=== PATIENT | male | born 1935 | race Caucasian/White ===

== ENCOUNTER 2019-05-26 15:51 | Observation (INO) | payer MEDICARE ==
[~2019-05-26] VITALS: Ht 182.9 cm; Wt 117.6 kg
--- NOTE | ~2019-05-26 | OR ---
[facility] [address], [place] [address] Draft DATE OF OPERATION: 05/27/2019 SURGEON: Humera Torrez MD PREOPERATIVE DIAGNOSES: 1. Acute calculous cholecystitis with probable cholangitis and sepsis. 2. Obesity. POSTOPERATIVE DIAGNOSES: 1. Acute calculous cholecystitis with probable cholangitis and sepsis. 2. Obesity. 3. Common bile duct stones. PROCEDURES: 1. Laparoscopic cholecystectomy with cholangiogram. 2. Laparoscopic lysis of adhesions. 3. Laparoscopic common bile duct exploration with extraction of common bile duct stones. 4. Flexible choledochoscopy with basket common bile duct stone removal, prolonged, complicated, difficult. ANESTHESIA: General endotracheal, Humera Maldonado CRNA, and local 10 mL of 0.25% Marcaine with epinephrine. INDICATION: This 84-year-old white man is known to me from the past and has longstanding been known to have gallstones, never symptomatic. He was admitted on May 26, 2019, after presentation in the emergency room with severe epigastric and bilateral subcostal pain and findings consistent with acute calculous cholecystitis. A gallbladder ultrasound was performed confirming this. He did have slightly elevated liver enzymes and bilirubin that was somewhat elevated as well. He was given fluid resuscitation, intravenous antibiotic Ancef, parental pain medication and so forth. This morning, he had an episode of chills and sweats and findings highly suggestive of cholangitis. A lactic acid level was obtained which is 2.6 (elevated). His antibiotics were changed from Ancef to meropenem and he is improved. He is admitted late in the day at this time to undergo cholecystectomy preferred by laparoscopic approach. The risks of bleeding, infection, bile duct injury, need for open procedure, need for common duct exploration, and other unforeseen complications were all reviewed in detail. He understands and wished to proceed. PATIENT NAME: NIKKY RONDON OPERATIVE REPORT DATE OF : 39 REPORT #: [id number] PHYSICIAN: HUMERA TORREZ MD PCP: DILLAN CA DO REPORT IS CONFIDENTIAL AND NOT TO BE RELEASED WITHOUT AUTHORIZATION [facility] [address], [place] [address] Draft FINDINGS: The patient had a fair amount of intraabdominal adhesions related to a long midline incision from the past. This required extensive lysis of adhesions to allow for placement of trocars in a safe way. On that basis alone, the procedure was prolonged, complicated, and difficult. He was found to have in fact a markedly inflamed gallbladder. No sign of gangrenous change. Decompression was required given the extent of the gallbladder inflammation. On initial cholangiogram, he did have a small amount of flow of contrast into the duodenum. The distal common duct in the region of the ampulla looked abnormal and on that basis, laparoscopic common duct exploration was undertaken from a transcystic approach. This ultimately did require flexible choledochoscopy and extraction of a common bile duct stone with basket using a flexible choledochoscope. Completion cholangiogram was ultimately found to be normal. The gallbladder once excised showed a marked inflammatory change of the mucosa and a hemorrhagic clot and sludge as well as black multifaceted thin flint like gallstones. There was no sign of neoplasm proper. DESCRIPTION OF PROCEDURE: The patient was brought to the operating room, given a general endotracheal anesthetic. Mindful of possibility of prolonged operation, a Gusman catheter was placed by myself. The abdomen was then clipped and prepared with a chlorhexidine solution and draped sterilely. Preoperative antibiotic meropenem had been given. An infraumbilical incision was made and despite a long midline incision with an open Christy cannula technique, the abdomen was entered and pneumoperitoneum achieved to a level of 10 mmHg of carbon dioxide gas. The laparoscope was carefully insinuated into the peritoneal cavity allowing for visualization of the upper abdomen. The liver appeared reasonably normal, however, the gallbladder itself was markedly inflamed and distended. There were numerous adhesions in the upper abdomen requiring lysis to allow for safe placement of trocars. Through a right-sided 5 mm port, lysis was undertaken providing a good field in the upper abdomen. An epigastric 12 mm port was placed under direct visualization without problem and a right midclavicular port 5 mm in size also placed. Attempts to grasp the gallbladder were unsuccessful. Therefore, decompression of the gallbladder was undertaken with a needle device draining bilious fluid. Puncture site was grasped allowing for elevation of the gallbladder more cephalad. The infundibulum was grasped and the infundibulum was quite fatty. Using blunt and electrocautery dissection, the triangle of Calot was dissected free ultimately identifying well the cystic arterial branches as well as the cystic duct clip. A clip PATIENT NAME: NIKKY RONDON OPERATIVE REPORT DATE OF : 39 REPORT #: [id number] PHYSICIAN: HUMERA TORREZ MD PCP: DILLAN CA DO REPORT IS CONFIDENTIAL AND NOT TO BE RELEASED WITHOUT AUTHORIZATION [address] [address] Draft was applied across gallbladder cystic duct junction and the cystic duct doubly clipped and divided. A transverse choledochotomy was made in the cystic duct showing egress of dark bile. Using the Rashid type cholangiocatheter, intraoperative cholangiography was undertaken. This showed free flow of contrast in biliary tree which was somewhat dilated and although there was a trickle of contrast into the duodenum, there appeared to be abnormality in the distal common duct. Mindful of his preoperative lab studies, his cholangitis and so forth probability of common bile duct stones was considered high. On that basis, laparoscopic common duct exploration was recommended. In the epigastric area, a Taut trocar was placed under direct visualization allowing for alignment of the trocar with the cystic duct itself. Using the Taut catheter system and a flexible-tipped urology wire, the wire was passed down the cystic duct and confirmed on fluoroscopy to be in the distal duct. Manipulation of the wire allowed to pass through the ampulla. Following that, a Taut balloon type catheter was passed over the wire under direct visualization aligning the two balloon helms directly across the ampulla. Ampulla was then dilated with radiocontrast in the balloon allowing for opening of the ampulla. MD MATTEO Horne/SANGEETA /[id number] Copies: ~ PATIENT NAME: NIKKY RONDON OPERATIVE REPORT DATE OF : 39 REPORT #: [id number] PHYSICIAN: HUMERA TORREZ MD PCP: DILLAN CA DO REPORT IS CONFIDENTIAL AND NOT TO BE RELEASED WITHOUT AUTHORIZATION
[~2019-05-26 15:51] MED LIST: AMLODIPINE BESY10 MG PO; ASPIRIN EC81 MG PO; BP MED PO; CIPRO500 MG PO; HYDROCODON-ACE1 EA10 PO; IBUPROFEN600 MG PO; LISINOPRIL-HCT1 EAC2 PO; MAGNESIUM250 M1 PO; MAPAP325 MG PO; METRONIDAZOLE500 MG PO; MIRALAX17 GM PO; NORCO 5-325 TA1 EACH PO; OXYCODON-ACETA1 EAC2 PO; PRESERVISION A1 EAC3 PO; PRILOSEC20 MG PO; VITAMIN D-32000 UNIT PO; [UNRECOGNIZED DRUG - REMARK] PO
--- NOTE | 2019-05-26 19:10 | NUR ---
REPORT RECEIVED, PT ARRIVED TO THE FLOOR VIA BED, OFFSET PLATEMAKERFLOYD GREGG IN ROOM W/PT CHECKING HIM IN AT THIS TIME.
--- NOTE | 2019-05-26 19:30 | NUR ---
PT ADMITTED TO ROOM 109 @ 1908, A/O, SBA FROM STRETCHER TO BED. ACCOMPAINED BY . ADMITTED ON OXYGEN, STATES HE DOESN'T USE OXYGEN AT HOME, BUT AT APPOINTMENTS HIS OX LEVELS ARE "88, 89, OR IN 90'S" WEARS TONY HEARING AIDES, PARTIAL LOWER DENTURE. STATES HIS HAS "DEMENTIA". SHE WILL STAY WITH HIM IN ROOM BUT HE REQUESTS STAFF DIRECT HER IF SHE IS SEEN IN THE HALLWAY. STATES SHE WILL GET LOST DRIVING HOME. CAREGIVER LUNCH BOX GIVEN TO PT SHE MISSED DINNER. WILL GET HER BREAKFAST TRAY IN MORNING. CALL LIGHT AND BED CONTROLS INSTRUCTIONS GIVEN TO PT.
--- NOTE | 2019-05-26 19:56 | NUR ---
IN ROOM TO ADMIN SCHEDULED ABX, PT AOX4, APPROPRIATE, RESTING IN BED, ON 2LNC, NO C/O SOB/CP, PT DENIES ANY SIGNIFICANT PAIN AT THIS TIME, RATES PAIN AT 2/10, DENIES NEED FOR PRN PAIN MEDICATION, PT DENIES ANY NAUSEA, BT ACTIVE, ABDOMEN IS SOFT, PT DESCRIBES ABD TENDERNESS IN MID EPIGASTRIC AREA WELL BILATERAL UPPER QUADRANTS, PT STATES "IT FEELS LIKE IT'S RIGHT UNDER MY RIB CAGE", PT ORIENTED TO ROOM, EDUCATION PROVIDED REGARDING PAIN MANAGEMENT WELL POC, PT DENIES ANY NEEDS AT THIS TIME, ALLERGY BAND APPLIED, PT'S VSS, CALL LIGHT WITHIN REACH. PT VERBALIZED THAT HE WILL CALL IF NEED TO USE THE RESTROOM ARISES FOR ASSISTANCE DUE TO IV, IV FLUIDS INFUSING PER EMAR WNL.
--- NOTE | 2019-05-26 21:23 | NUR ---
PT GAVE BROTHER REKHA'S NUMBER IN THE EVENT AN EMERGENCY OCCURS, LIVES IN [facility]. [phone]. DR TORREZ IN TO SEE PT, STATES SURGERY "IN THE AFTERNOON". DISCUSSED WITH PT.
--- NOTE | 2019-05-26 22:00 | NUR ---
TELE PHARMACY CALLED THE FLOOR REGARDING PT'S ORDERED DOSE OF LISINOPRIL/HCTZ, DISCUSSED ORDER WITH DR. TORREZ AND RECEIVED ORDER TO FOLLOW THE PT'S HOME DOSE. DISCUSSED WITH PT, PT STATED THAT HE HAD ALREADY TAKEN THAT MEDICATION TODAY THEREFORE MEDICATION WAS RETIMED TO BE GIVEN IN AM, DISCUSSED WITH PHARMACY AND VERIFIED ORDER CHANGES WITH INDUSTRIAL ECOLOGY TECHNICIAN.
--- NOTE | 2019-05-26 22:35 | NUR ---
PT C/O HEARTBURN, PT GIVEN PRN HEARTBURN MEDICATION PER EMAR, PT RESTING IN BED, ON 2LNC, NO FURTHER NEEDS AT THIS TIME, CALL LIGHT WITHIN REACH. FALL PRECAUTIONS IN PLACE.
--- NOTE | 2019-05-27 00:31 | NUR ---
PT UP TO BATHROOM WITH 1 PERSON SBA, PT BACK TO BED, SCD'S ON, IV FLUIDS INFUSING PER EMAR WNL, PT STATES THAT HIS HEARTBURN HAS DECREASED ALTHOUGH HE CONTINUES TO BE PASSING GAS AND BELCHING FREQUENTLY, PT DENIES ANY NAUSEA, DENIES ANY SIGNIFICANT PAIN, PT INSTRUCTED TO NOTIFY THIS RN IF PAIN OR NAUSEA BEGIN TO INCREASE, PT DENIES ANY NEEDS AT THIS TIME, CALL LIGHT WITHIN REACH. FALL PRECAUTIONS IN PLACE.
--- NOTE | 2019-05-27 02:33 | NUR ---
PT RESTING IN BED, EYES CLOSED, BREATHS EVEN, UNLABORED, NO NEEDS AT THIS TIME, CALL LIGHT WITHIN REACH. FALL PRECAUTIONS IN PLACE. ON 2LNC, IV FLUIDS INFUSING PER EMAR WNL. SCD'S ON.
--- NOTE | 2019-05-27 03:30 | NUR ---
CALL LIGHT ANSWERED, DORETHA LOZOYA ASSISTED PT TO THE BATHROOM, 1 PERSON SBA, PT THEN C/O HEARTBURN, PT GIVEN PRN HEARTBURN MED PER EMAR, PT DENIES SIGNIFICANT PAIN AT THIS TIME, RATES PAIN AT 3/10, DENIES NEED FOR PRN PAIN MEDICATION. IV ABX/FLUIDS INFUSING PER EMAR WNL. SCD'S ON, PT REMAINS ON 2LNC, NO C/O SOB/CP, LS CLEAR, BT ACTIVE.
--- NOTE | 2019-05-27 04:49 | NUR ---
PT AOX4, APPROPRIATE, PT RESTED WELL, PT IS TANANA, 1 PERSON SBA, IV FLUIDS INFUSING PER EMAR WNL, IV ABX INFUSED PER EMAR, PT HAS C/O HEARTBURN X2 THIS SHIFT, MAALOX GIVEN PER EMAR, NO C/O PAIN, NO C/O NAUSEA, PT'S VSS, UO QS, PT HAS BEEN NPO SINCE ARRIVAL TO FLOOR, PLANNED SURGERY FOR LATER THIS AFTERNOON, CONSENT SIGNED AND ON CHART,
--- NOTE | 2019-05-27 05:29 | NUR ---
CALL LIGHT ANSWERED, PT C/O 04/10 PAIN IN ABDOMEN, PT GIVEN PRN PAIN MEDICATION PER EMAR, PT ALSO C/O NAUSEA AND DID HAVE AN EPISODE OF EMESIS OF APPROX. 200 ML'S, PT GIVEN PRN ZOFRAN PER EMAR RELATED TO NAUSEA, PT REMAINS ON 2LNC, O2 SAT 94%, HR 85, IV FLUIDS INFUSING PER EMAR WNL, SCD'S ON, LAB IN ROOM W/PT AT THIS TIME. CALL LIGHT WITHIN REACH. FALL PRECAUTIONS IN PLACE.
--- NOTE | 2019-05-27 05:50 | NUR ---
PT NOTED TO BE SHIVERING UNCONTROLLABLY, PT C/O COLD, WARM BLANKET BEING PROVIDED BY DORETHA LOZOYA, THIS RN CALLED BOOK REVIEWER CRISTINO AND FLOYD AMBROSE TO ROOM, CBG OBTAINED, PT'S CBG 137, PT'S VSS, AFEBRILE, SEE EHR, PT'S ABDOMEN NOT NOTED TO BE ANY MORE DISTENDED, PT'S BT REMAIN ACTIVE, DR. TORREZ CALLED AND NOTIFIED OF PT'S CONDITION, NEW ORDER FOR LACTIC ACID BLOOD DRAW WELL PHENERGAN FOR NAUSEA, SEE EMAR, NO FURTHER ORDERS, TORB.
--- NOTE | 2019-05-27 05:58 | NUR ---
VS and I&Os were complete per FLOYD Win.
--- NOTE | 2019-05-27 06:42 | NUR ---
PT HAD A SECOND EPISODE OF EMESIS AND CONTINUED NAUSEA, PRN PHERNERGAN GIVEN PER ORDER. PT RESTING IN BED, ON 2LNC, PT STATES "I THINK I AM STARTING TO WARM UP", WILL CONTINUE TO CLOSELY MONITOR.
--- NOTE | 2019-05-27 07:30 | NUR ---
PT RESTING IN HIGH FOWLERS WITH EYES CLOSED AND SNORING WITH NC IN PLACE ON REPORT.
--- NOTE | 2019-05-27 07:49 | NUR ---
PATIENT SLEEPING, IN ROOM. CALL LIGHT IN REACH. NO FURTHER NEEDS AT THIS TIME.
--- NOTE | 2019-05-27 07:59 | EKG ---
[facility] [address] [facility] [place] [address] Signed Sinus rhythm with sinus arrhythmia with 1st degree AV block with occasional premature ventricular complexes Otherwise normal ECG No previous ECGs available Confirmed by COREY BRANCH MD ([id number]) on 05/27/2019 7:59:04 AM Electronically Signed By: COREY BRANCH MD 05/27/19 0759 PATIENT NAME: NIKKY RONDON KIAN Electrocardiogram DATE OF : 39 PHYSICIAN: COREY BRANCH MD REPORT #: [id number] REPORT IS CONFIDENTIAL AND NOT TO BE RELEASED WITHOUT AUTHORIZATION
--- NOTE | 2019-05-27 08:18 | NUR ---
PT VERY DROWSY ON ARRIVAL TO PT RM. PT AROUSES TO VERBAL STIMULI AND IS ABLE TO STATE 2 PT IDENTIFIERS. CONT PULSE OX APPLIED, SATS HIGH 80'S WITH 2L NC IN PLACE. PT CHANGED TO 4 L NC WITH BUBBLE HUMIDIFIER IN PLACE, SATS 90%. PT SPOUSE IN RM LAYING ON COUCH. LOOK OUT TOWER FIRE WATCHER IN ROOM, WILL COME BACK AT LATER TIME. CALL LIGHT WITHIN REACH.
--- NOTE | 2019-05-27 09:13 | NUR ---
PATIENT UP TO BATHROOM AND BACK TO BED, 1PA. RN IN ROOM. CALL LIGHT IN REACH. NO FURTHER NEEDS AT THIS TIME.
--- NOTE | 2019-05-27 12:09 | NUR ---
CPOX MONITOR ALARMING. THIS RN TO BEDSIDE. O2 READS 88%. O2 BY NC INCREASED TO 5L. HEAD OF BED RAISED. PLUSE OX NOW READING 90-92%. PTS RN INFORMED. PT DENIES ADDITIONAL REQUESTS OR COMPLAINTS AT THIS TIME. CALL LIGHT WITHIN REACH.
--- NOTE | 2019-05-27 12:18 | NUR ---
MONITORING PT O2 DEMANDS. PT CURRENTLY ON 4L VIA NC WITH HUMIDIFICATION, SATS 90%. PT APPEARS TO BE COMFORTABLE, DENIES ANY NEEDS AT THIS TIME. PT SPOUSE CONT AT BEDSIDE. CALL LIGHT IN REACH.
--- NOTE | 2019-05-27 13:36 | NUR ---
PATIENT IN BED RESTING, AT BEDSIDE. NO VOID, WILL CHECK BACK IN. CALL LIGHT IN REACH. NO FURTHER NEEDS AT THIS TIME.
--- NOTE | 2019-05-27 14:00 | NUR ---
PT ALERT, ORIENTED SITTING UP IN BED, AND READY MATERIAL FOR SURGERY. PTS' IS AT BS. I REASSURED PT THAT STAFF WILL KEEP AN EYE ON HIS , AND SEE THAT SHE EATS WHILE HE IS IN SURGERY. PT REQUESTED PRAYER, WILL FOLLOW NEEDED
--- NOTE | 2019-05-27 14:43 | NUR ---
PT RESTING IN BED, HEAD ELEVATED. PT IS ALERT AND ORIENTED. PT HAS NO COMPLAINTS OR REQUESTS AT THIS TIME. PT'S AT BEDSIDE.OXYGEN SATURATION AT 91% ON 4L O2 N.C.
--- NOTE | 2019-05-27 15:56 | NUR ---
SURGICAL WIPEDOWN DONE. NEW GOWN PROVIDED. PATIENT UP TO BATHROOM AND BACK TO BED 1PA. IN ROOM. CALL LIGHT IN REACH. NO FURTHER NEEDS AT THIS TIME.
--- NOTE | 2019-05-27 16:10 | NUR ---
PT UP TO BATHROOM WITH RN ASSIST, ABLE TO VOID QS AND BACK TO BED. PT SITTING AT SIDE OF BED WITH 4L O2 VIA AK WTIH HUMIDIFICATION, SATS 90%. PT DENIES PAIN OR NAUSEA AT THIS TIME. PT PREPPED FOR SURGERY. SPOUSE AT BEDSIDE, CALL LIGHT WITHIN PLACE.
--- NOTE | 2019-05-27 17:43 | NUR ---
PATIENT IN BED, IN ROOM. CALL LIGHT IN REACH. NO FURTHER NEEDS AT THIS TIME.
[2019-05-27] MEDS ORDERED: VITAMIN B-12500 MCG PO (18:09)
--- NOTE | 2019-05-27 18:14 | NUR ---
Medications reconciled using pharmacy records and patient interview
--- NOTE | 2019-05-27 18:21 | NUR ---
PT WAS VERY DROWSY FIRST HALF OF SHIFT, 4L O2 PLACED TO MAINTAIN 90% OXYGEN SATURATION. PT IS NPO FOR SURGERY TODAY TO FOLLOW. HE HAS BEEN ORIETNED OVER SHIFT, HE IS HARD OF HEARING, HE HAS REPORTED NO PAIN OR NAUSEA OVER SHIFT. ONE PERSON ASSIST TO BATHROOM. HAS BEEN IN ROOM ENTIRE SHIFT HAS BEEN GIVEN CARE TRAYS FOR MEALS. PT IS CURRENTLY READY FOR SURGERY AWAITING OPERATING ROOM AVAILABLILITY.
--- NOTE | 2019-05-27 18:44 | NUR ---
PT OFF THE UNIT TO SURGERY. PT TO REMAIN IN ROOM 109 DURING PT PROCEDURE.
--- NOTE | 2019-05-27 19:48 | NUR ---
RECEIVED REPORT FROM DAY SHIFT RN. PATIENT IS IN SURGERY AT THIS TIME. JUSTIN IS IN THE ROOM. NO NEEDS NOTED. CALL LIGHT IN REACH.
--- NOTE | 2019-05-27 19:59 | NUR ---
Checked on pt . She is sitting in reclinner. Previous to this, she has her purse and was walking away from the room. Reminded her about her . Redirected back to room 109
--- NOTE | 2019-05-27 21:10 | NUR ---
Pt to door mult times. Reassured, gave pudding. Coloring picture given.
--- NOTE | 2019-05-27 22:34 | HP ---
[facility] [address], [place] [address] Signed ADMISSION DATE: 05/26/2019 REASON FOR ADMISSION: Acute calculous cholecystitis. HISTORY OF PRESENT ILLNESS: This 84-year-old white man is well known to me from the past having undergone colectomy for diverticular disease as well as bilateral carpal tunnel release. He has long known to have had gallstones, though they have never been symptomatic in the past. This morning at approximately 8:30 a.m., he began having bilateral subcostal significant abdominal pain. He did not have chest pain per se nor does he have any dyspnea, but his pain was quite significant particularly in taking deep breath. He additionally had bilateral posterior thoracic pain. In general terms, he has not been symptomatic from the gallstones in the past. He presented to the emergency room where he was evaluated by Dr. Shahid, who was concerned of possible pulmonary embolism and got a D-dimer, which was normal or at least not very high and a chest x-ray, which was normal. An ultrasound of the gallbladder was performed, which showed findings of gallstones as previously noted. The findings including some thickening of the gallbladder wall consistent with cholecystitis. He is admitted for further evaluation and care for acute calculous cholecystitis. PAST MEDICAL HISTORY: Significant for sigmoid resection for diverticular disease as well as appendectomy. He has had bilateral carpal tunnel release. He does not smoke and uses alcohol occasionally. Other issues include hypertension. SOCIAL HISTORY: He lives in [place]. He works in renovating houses and selling them. He is accompanied by his hussain. CURRENT MEDICATIONS: Include: 1. Amlodipine 10 mg p.o. daily. 2. Lisinopril/hydrochlorothiazide 10/12.5 mg one p.o. daily. 3. Vitamin D3 one tablet p.o. daily. 4. Magnesium 250 mg p.o. daily. Electronically Signed By: HUMERA TORREZ MD 05/27/19 2234 PATIENT NAME: NIKKY STEELE HISTORY AND PHYSICAL DATE OF : 39 REPORT #: [id number] PHYSICIAN: HUMERA TORREZ MD PCP: DILLAN CA DO REPORT IS CONFIDENTIAL AND NOT TO BE RELEASED WITHOUT AUTHORIZATION [facility] [address], [place] [address] Signed 5. Multivitamin for vision. PRIMARY CARE PROVIDER: Dr. Ca. REVIEW OF SYSTEMS: He denies any chest pain or precordial pain. Denies any dysphagia or hematemesis, blood per rectum, or dysuria. PHYSICAL EXAMINATION: GENERAL: A morbidly obese white man. He is 6 feet tall, weighs 117 kg with a BMI of 35.2. HEENT: Mucous membranes are slightly dry. Trachea is midline. He has no hoarseness. CHEST: Clear. HEART: Regular without murmur. ABDOMEN: Markedly obese. He has tenderness in the right subcostal area. There is no palpable mass. I detect no ascites. LABORATORY STUDIES: Show a normal troponin. D-dimer was 308. Liver enzymes were normal with an alkaline phosphatase of 70, but an elevated AST of 135, a bilirubin of 2.5, an ALT of 106. Electrolytes were normal. Creatinine is elevated at 1.20. White count is 9.6, hematocrit 44.4, and platelets 222,000. Ultrasound report was reviewed showing gallstones in the neck of the gallbladder with mildly thickened wall and positive Steele sign. Images not yet available for me to review myself, which I will do. ASSESSMENT: The patient has long been known to have gallstones, which were previously asymptomatic or minimally symptomatic. At this point, he does have acute calculous cholecystitis by clinical and radiographic appearance. He is admitted for fluid resuscitation, IV antibiotics, parenteral pain medication, and recommendation for cholecystectomy. Discussed both laparoscopic and open cholecystectomy as the remedy to this problem. We would anticipate to do this after he is adequately fluid resuscitated given antibiotics and so forth. Most likely this would be tomorrow afternoon. We discussed the risks of bleeding, infection, bile duct injury, need for open procedure, though a laparoscopic one would be preferred. He understands all this and wished to proceed as does his . Electronically Signed By: HUMERA TORREZ MD 05/27/19 2234 PATIENT NAME: NIKKY STEELE HISTORY AND PHYSICAL DATE OF : 39 REPORT #: [id number] PHYSICIAN: HUMERA TORREZ MD PCP: DILLAN CA DO REPORT IS CONFIDENTIAL AND NOT TO BE RELEASED WITHOUT AUTHORIZATION [address] [address] Signed Humera Torrez MD JM/MODL /[id number] cc: Dr. Zehra Ca DO Copies: DILLAN CA DO ~ Electronically Signed By: HUMERA TORREZ MD 05/27/19 2234 PATIENT NAME: NIKKY STEELE HISTORY AND PHYSICAL DATE OF : 39 REPORT #: [id number] PHYSICIAN: HUMERA TORREZ MD PCP: DILLAN CA DO REPORT IS CONFIDENTIAL AND NOT TO BE RELEASED WITHOUT AUTHORIZATION
--- NOTE | 2019-05-27 23:41 | NUR ---
PATIENT ARRIVED TO THE FLOOR. RECEIVED REPORT FROM METAL MACHINE SETTER. PATIENT IS RESTIN GIN BED ON 4L OM. PATIENT HAS JANIYA IN PLACE. ABAD IN PLACE. IV INFUSING PER ORDER. PATIENT IS CONFUSED. BED ALARM ON FOR SAFETY. PATIENTS IS IN THE ROOM. PATIENT DENIES ANY PAIN OR NAUSEA. PATIENT IS DROWSY.
--- NOTE | 2019-05-27 23:53 | NUR ---
05/27/19 2353 Jigna Jones 2204 PT ARRIVED IN PACU NON RESPONSIVE TO VERBAL/TACTILE STIMULI WITH OPA IN PLACE. RN HOLDING CHIN LIFT. 2218 PT REACTIVE. OPA REMOVED. PT FALLS BACK TO SLEEP WHEN NOT STIMULATED. 2230 DR AT BEDSIDE. 2245 OXYGEN MASK REMOVED AND NC PLACED AT 4L WITH SATS 88%. OM PLACED AND INCREASED TO 10L WITH SATS 88-90%. ENCOURAGED COUGH, DEEP BREATHING. 2300 OM DECREASED TO 6L WITH SATS 88-90%. CONTINUED TO ENCOURAGE PT TO DEEP BREATH AND REORIENTED TO PEOPLE, PLACE AND TIME. 2315 OM DECREASED TO 4L WITH SATS 90%. ENCOURAGED PT TO COUGH AND DEEP BREATH. 2330 TO ROOM 109. AT BEDSIDE. REPORT GIVEN TO RN.
--- NOTE | 2019-05-28 00:12 | NUR ---
PATIENT REMAINS DROWSY. PATIENT IS EASY TO AROUSE. PATIENT REMAINS DISORIENTED. PATIENT REORIENTED. RT IN ROOM AND TITRATED OM TO 7L. PATIENT GIVEN SIPS OF WATER. HIS REMAINS IN ROOM AND CONFUSED. PATIENTS BED MADE ON A COUCH. NO NEEDS NOTED. BED ALARM ON FOR SAFETY. CALL LIGHT IN REACH.
--- NOTE | 2019-05-28 00:29 | NUR ---
PT MOSTLY SLEEPY, WAS ABLE TO FOLLOW COMMANDS, STILL DISORIENTED, WONDERING WHERE THIS NURSE CAME FROM. ABLE KNOW HE HAD SURGERY, EVENTUALLY ABLE TO SAY WHAT KIND. COMPLAINS OF HIS LEFT EYE. WARM COMPRESS, STATES THE OUTSIDE OF EYE HURTS. WATER GIVEN PER HIS PRIMARY RN. SLEEPING ON COUCH.
--- NOTE | 2019-05-28 00:35 | NUR ---
POST-OP VITALS TAKEN BY CRISTINO BARRIENTOS. PATIENT IS RESTIN GIN BED. CPOX IN USE. PATIENT REMAINS IN 7L VIA OM. PATIENT REMAINS DROWSY. WHEN PATIENT IS AWAKE HE IS ABLE TO STATE "I HAD SURGERY ON MY RIGHT SIDE.". PATIENT DENIES ANY PAIN OR NAUSEA. SIPS OF WATER PROVIDED. PATIENTS IS LYING ON THE COUCH. NO NEEDS NOTED. CALL LIGHT IN REACH. BED ALARM ON FOR SAFETY.
--- NOTE | 2019-05-28 01:37 | NUR ---
PATIENTS POST-OP VITALS TAKEN AND RECORDED. INTAKE AND OUPUT RECORDED. PATIENT TOLERATING ICE WATER AT THIS TIME. PATIENT DENIES ANY PAIN OR NAUSEA. PATIENT REMAISN DROWSY BUT IS NOW MORE OREINTED TO SURROUNDINGS. PATIENTS SCHEDULED MEDICATIONS GIVEN PER ORDER. ABAD EMPTIED AND RECORDED. NO FURTHER NEEDS NOTED. CALL LIGHT IN REACH AND ALARM ON FOR SAFETY.
--- NOTE | 2019-05-28 02:40 | NUR ---
PATIENTS LAST POST-OP VITALS TAKEN AND RECORDED. PATIENT COMPLAINS OF LEFT EYE PAIN. PATIENTS EYE IS NOT RED OR SWOLLEN. PATIENT STATED "I CANT GET IT OPEN". PATIENT DENIES ANY PAIN OR NASUEA. NO NEEDS NOTED. CALL LIGHT IN REACH. ALARM ON FOR SAFETY.
--- NOTE | 2019-05-28 04:19 | NUR ---
PATIENT PROVIDED WITH FRESH ICE WATER. PATIENT DENIES ANY PAIN OR NAUSEA. PATIENT DENIES ANY NEEDS. CALL LIGHT IN REACH.
--- NOTE | 2019-05-28 04:28 | NUR ---
PATIENT RESTED ON AND OFF THROUGHOUT THE SHIFT. PATIENT IS TOLERATING A CLEAR DIET AND CAN BE ADVANCED TOELRATED. PATIENT HAS DENIED ANY PAIN OR NAUSEA. PATIENT HAS XS LAP SITES THAT ARE COVERED WITH STERI STRIPS AND SCANT DRAINAGE NOTED. UMBILICAL SITE REINFORCED. PATIENT HAS ABAD IN PLACE. PATIENT IS [place] AND WEARS HEARING AIDS. PATIENT IS ON 6L VIA NC. PATIENT IS AAOX3 BUT IS DROWSY AT TIMES. PATIENT HAS JANIYA IN RLQ THAT IS PUTTING OUT A MODERATE AMOUNT OF SEROSANGUIONOUS FLUID. PATIENT HAS NOT BEEN OUT OF BED SINSCE SURGERY. PATIENTS REMAINS IN THE ROOM. CALL LIGHT IN REACH.
--- NOTE | 2019-05-28 05:47 | NUR ---
PATIENTS VITALS TAKEN AND REOCRDED. PATIENTS ABAD EMPTIED. JANIYA EMPTIED AND PATIENT TAUGHT TO EMPTY JANIYA. PATIENT DENIES ANY NAUSEA. PATIENT HAS PAIN IN HIS ABD AND RATES IT A 2/10. PATIENT DENIES THE NEED FOR ANY PAIN MEDICATION AT THIS TIME. PATIENT TITRATED DOWN TO 5L VIA NC. PATIENT HAS CPOX IN USE. PATIENT HAS SCDS IN PLACE. PATIENTS ICE WATER REFRESHED. PATIENT STATED "MY RIGHT EYE FEELS BETTER". PATIENT DENIES ANY FURTHER NEEDS. CALL LIGHT IN REACH.
--- NOTE | 2019-05-28 07:43 | NUR ---
PT RESTING IN SEMI FOWLERS WITH EYES CLOSED ON REPORT, AROUSES TO VERBAL STIMULI AND WAVES HELLO. PT DENIES NAUSEA AND STATES HE IS COMFORTABLE, ONLY HAS PAIN WITH DEEP BREATHING. PT HAS 3L O2 VIA NC, SATS 88%. PT SPOUSE ON BEDSIDE COUCH SLEEPING. BREAKFAST ORDERED, CALL LIGHT IN REACH.
--- NOTE | 2019-05-28 08:43 | NUR ---
PT UP TO BEDSIDE CHAIR WITH 2 RN ASSIST. PT TRANSFERS WELL WITH MODERATE ABD PAIN, RATES 4/10. PT EDUCATED ABOUT PAIN AND DENIES ANY MEDICATION AT THIS TIME. BREAKFAST SERVED. PT RESP EVEN AND UNLABORED, SHALLOW. SATS 86-89% ON 3L VIA NC. RESP THERAPY IN PT ROOM ASSESSING, PT SATS INCREASE TO 89-90% WITH I.S. USE. PT ENCOURAGED TO USE I.S. PT STATES ABD "STARTS TO HURT WHEN I USE IT." PT SPOUSE AT BEDSIDE EATING BREAKFAST. CALL LIGHT WITHIN REACH.
--- NOTE | 2019-05-28 09:19 | OR ---
[facility] [address], [place] [address] Signed DATE OF OPERATION: 05/27/2019 SURGEON: Humera Torrez MD PREOPERATIVE DIAGNOSES: 1. Acute calculous cholecystitis and cholangitis. 2. Morbid obesity. POSTOPERATIVE DIAGNOSES: 1. Acute calculous cholecystitis and cholangitis. 2. Morbid obesity. 3. Common bile duct stones. PROCEDURE: 1. Laparoscopic cholecystectomy with cholangiogram. 2. Laparoscopic lysis of adhesions. 3. Laparoscopic common bile duct exploration with flexible choledochoscopy and extraction of common bile duct stone, prolonged complicated, difficult. ANESTHESIA: General endotracheal, Humera Maldonado CRNA, and local 10 mL of 0.25% Marcaine with epinephrine. INDICATION: This 84-year-old white male was admitted yesterday, 05/26/2019, with findings consistent with acute cholecystitis. He has long-standing known to have gallstones, but never had symptoms from them in the past. He is known to me from the past having undergone colectomy. He has been fluid resuscitated and given intravenous antibiotic Ancef. He did have fever and chills and sweats and a lactic acid level was drawn this morning, which was elevated at 2.6. On that basis, his antibiotic was changed to meropenem. He was fluid resuscitated and now is to undergo cholecystectomy preferably by laparoscopic approach. He does have somewhat elevated liver enzymes preoperatively. His total bilirubin is 5.7. His AST 227, ALT 245, alkaline phosphatase 81. Of note, his followup lactic acid was 1.4 down from 2.3 initially noted. The patient and his understand the risks of bleeding, infection, bile duct injury, need for open procedure and need for other indicated procedures and wished to proceed. Electronically Signed By: HUMERA TORREZ MD 05/28/19 0919 PATIENT NAME: NIKKY RONDON OPERATIVE REPORT DATE OF : 39 REPORT #: [id number] PHYSICIAN: HUMERA TORREZ MD PCP: DILLAN CA DO REPORT IS CONFIDENTIAL AND NOT TO BE RELEASED WITHOUT AUTHORIZATION [facility] [address], [place] [address] Signed FINDINGS: The gallbladder is quite markedly inflamed, but not gangrenous. There were numerous intraabdominal adhesions. Complete cholecystectomy was undertaken, but he did require a common duct exploration and extraction of the common bile duct stone by laparoscopic approach including flexible choledochoscopy via the cystic duct. A drain was left in place. A completion T-tube cholangiogram shows no sign of retained stone and good flow into the duodenum. The gallbladder itself had a gelatinous bloody clot as well as sludge and several small chip like black stones. There is no sign of neoplasm proper. Of note, the flexible choledochoscope was able to pass down the cystic duct, common bile duct, and into the duodenum following that dilation. DESCRIPTION OF PROCEDURE: The patient was brought to the operating room, given a general endotracheal anesthetic. A Gusman catheter was placed by myself anticipating possibly lengthy operation. Sequential compression device stockings were used. Preoperative antibiotic meropenem had been given. The abdomen was clipped and prepared with chlorhexidine solution and draped sterilely. An infraumbilical incision was made near a long midline incision and using an open Christy cannula technique, the abdomen was entered without complication, though bowel loops were close to the region of the incision. Pneumoperitoneum was achieved to a level of 10 mmHg with carbon dioxide gas and intraabdominal inspection undertaken showing a distended gallbladder, markedly inflamed and a reasonably normal-appearing liver. Numerous adhesions obscured the view initially. A right-sided 5 mm trocar was placed and using endoscopic scissors, the adhesions were taken down with all due care. This allowed for good field in the upper abdomen to allow for other trocars to be placed. One was placed in the midclavicular line 5 mm in size and a 12 mm epigastric port was placed under direct visualization. The gallbladder was too tense and distended to allow elevation and therefore it was decompressed with a laparoscopic needle device. Dark bile was noted. The puncture site was grasped and elevated cephalad and retraction undertaken at the infundibulum. Using blunt and electrocautery dissection, the triangle of Calot was dissected free identifying well the cystic duct as well as a dominant cystic arterial pedicle. This artery was doubly clipped and divided and a clip applied across gallbladder cystic duct junction and a transverse choledochotomy made in the cystic duct. Egress of dark bile was noted from the cystic duct. Using an Rashid type cholangiocatheter, intraoperative cholangiography was undertaken showing free flow of contrast in biliary tree with prompt filling of the proximal biliary tree, but not prompt emptying into the duodenum. There appeared to be debris or filling defect in the distal duct. On that basis, a common bile duct exploration was deemed appropriate. An epigastric 5 mm port from the Lifesquaret catheter kit was placed allowing for the trocar to Electronically Signed By: HUMERA TORREZ MD 05/28/19 0919 PATIENT NAME: NIKKY RONDON OPERATIVE REPORT DATE OF : 39 REPORT #: [id number] PHYSICIAN: HUMERA TORREZ MD PCP: DILLAN CA DO REPORT IS CONFIDENTIAL AND NOT TO BE RELEASED WITHOUT AUTHORIZATION [facility] [address], [place] [address] Signed be placed close to the cystic duct itself. Urologic flexible tip wire was passed down the cystic duct into the common duct and fluoroscopy undertaken. This showed the wire to be somewhat close in the distal common duct and not passed into the duodenum. Under fluoroscopic control, the wire was ultimately manipulated into the duodenum quite clearly. The Taut balloon catheter was then passed over the wire under direct visualization allowing alignment of the two markers designating the balloon to be straddled across the ampulla itself. Insufflation of the balloon of the Taut catheter across the ampulla was undertaken, dilating it well. The balloon was decompressed and withdrawn under fluoroscopic control and taken across the cystic duct where it was sequentially dilated as well. Ultimately, it was removed as was the wire. A urologic video nephroureteroscope was then passed down the cystic duct with infusion of saline concurrently. This allowed for good visualization of the duct. The scope was passed through the cystic duct into the common bile duct and without impediment into the duodenum itself. The villi of the duodenum were quite obvious. The scope was withdrawn to the ampulla, which had traumatic changes as would be expected and of course not worrisome. Strangely, I did not see initially any common duct stone. With various manipulations, the catheter was withdrawn carefully through the common bile duct ultimately identifying the dark black irregularly shaped stone. Various manipulations were used to allow for passage of a basket into the common duct. This stone could not be found and various maneuvers were undertaken including repeat cholangiography, which did in fact demonstrate a common bile duct stone. Reintroduction of the choledochoscope via the cystic duct was undertaken ultimately identifying the stone and allow for stone basket to grasp the stone. The basket, the stone, and the choledochoscope were gently withdrawn out of the common bile duct and via the cystic duct, removed. Clearly, the offending stone had been captured and removed. A photograph was taken, which unfortunately was not subsequently printed. Completion cholangiogram was undertaken showing a filling defect in the mid common duct not as big as before, but worrisome enough that a repeat choledochoscopy was undertaken. This allowed for visualization of some shards of stone, which were easily flushed through the ampulla into the duodenum. Irrigation was undertaken more fully and cholangiography once again obtained. Cholangiography confirmed no sign of filling defect, good flow of contrast in to the duodenum and a more normal-appearing ampulla and no further indication for additional common bile duct maneuvers. The cystic duct was then triply clipped and divided the gallbladder dissected free in a retrograde fashion using electrocautery. Clips were applied to pericholecystic arterial branches as necessary. The gallbladder was placed in an endobag and extracted through Electronically Signed By: HUMERA TORREZ MD 05/28/19 0919 PATIENT NAME: NIKKY RONDON OPERATIVE REPORT DATE OF : 39 REPORT #: [id number] PHYSICIAN: HUMERA TORREZ MD PCP: DILLAN CA DO REPORT IS CONFIDENTIAL AND NOT TO BE RELEASED WITHOUT AUTHORIZATION [facility] [address], [place] [address] Signed the infraumbilical port site with all due care. Inspection of that site showed bowel loops closely adherent to it, but certainly not injured in any way, using the Christy cannula technique. Reinspection of subhepatic space showed no sign of bile leak, bleeding, or other problems. Excess irrigation fluid was suctioned free. Through a right-sided 5 mm port, a 7 mm Tj drain was placed in the subhepatic space, secured the skin with nylon suture and attached to bulb suction. Irrigation was undertaken. Excess irrigation fluid suctioned free. The trocars were removed under direct visualization showing no sign of bleeding. The infraumbilical fascial incision was reapproximated with interrupted 0 Vicryl suture as well as 0-PDS suture in an interrupted fashion. Irrigation was undertaken in all the areas. A 10 mL of 0.25% Marcaine with epinephrine was injected locally. The skin closed with interrupted 3-0 Vicryl. Steri-Strips were applied. The patient was ultimately extubated and transferred to recovery in good condition having suffered no complications. Sponge, needle, and instrument counts reported as correct x3. The operation was prolonged, complicated, and difficult, lasting 3 hours plus. MD MATTEO Horne/SANJUANAL /[id number] cc: DO Brown Eubanks MD Copies: DILLAN CA SHELDON MD ~ Electronically Signed By: HUMERA TORREZ MD 05/28/19 0919 PATIENT NAME: NIKKY RONDON OPERATIVE REPORT DATE OF : 39 REPORT #: [id number] PHYSICIAN: HUMERA TORREZ MD PCP: DILLAN CA DO REPORT IS CONFIDENTIAL AND NOT TO BE RELEASED WITHOUT AUTHORIZATION
--- NOTE | 2019-05-28 09:51 | NUR ---
PATIENT IN CHAIR, IN ROOM. FRESH WATER GIVEN. CALL LIGHT IN REACH. NO FURTHER NEEDS AT THIS TIME.
--- NOTE | 2019-05-28 10:32 | NUR ---
IV RATE TITRATED TO 75MLS PER HOUR. APPROX 9 MLS CLEAR FLUID EMPIED FROM ABAD BALLOON, ABAD REMOVED. PT TOLERATED WELL. PT EDUCATED TO USE CALL LIGHT WITH URGE TO VOID, WILL CONTINUE TO MONITOR. PT STATES 4/10 PAIN IN RLQ ABD, JANIYA DRAIN ASSESSED. RED DRAINAGE ON DRESSING NOTED AND CIRCUMFERENCE CIRCLED TO MONITOR DRAINAGE OUTPUT. PT ACCEPTS PAIN MEDICATION, SEE EMAR. CALL LIGHT WITHIN REACH.
--- NOTE | 2019-05-28 13:03 | NUR ---
1230: LUNCH ORDERED FOR PT AND SPOUSE. 1300: PT EATING LUNCH AT SIDE OF BED WITH SPOUSE IN BEDSIDE CHAIR. PT DENIES ANY PAIN AT THIS MOMENT BUT STATES PAIN "IS ABOUT A 4" WITH MOVEMENT. NC WITH 3L IN PLACE, SATS 88%. CALL LIGHT IN REACH.
--- NOTE | 2019-05-28 13:51 | NUR ---
PATIENT IN BED, IN ROOM. FRESH WATER GIVEN. CALL LIGHT IN REACH. NO FURTHER NEEDS AT THIS TIME.
--- NOTE | 2019-05-28 15:18 | NUR ---
PATIENT UP TO BATHROOM AND BACK TO BED, SBA. CALL LIGHT IN REACH. NO FURTHER NEEDS AT THIS TIME.
--- NOTE | 2019-05-28 15:54 | NUR ---
PT UP WITH FORMING ROLL OPERATOR HEAVY DUTY TO USE BATHROOM FOR FIRST TIME SINCE ABAD REMOVED. PT VOIDS APPROX 125MLS TEA COLORED URINE. PT BLADDER SCANNED, [address] YU NOTIFIED OF LOW UO. VERBAL ORDERS FOR LR@20O MLS/HR AND BACK TO D5LR@75 ONCE COMPLETED. PT ALSO ENCOURAGED TO DRINK FLUIDS.
--- NOTE | 2019-05-28 17:20 | NUR ---
PT SITTING UP AT SIDE OF BED EATING DINNER. SPOUSE IN BEDSIDE CHAIR, EATING WELL. PT STATES RLQ OF ABDOMEN "TENDER." JANIYA DRAIN SITE ASSESSED, NO NEW DRAINAGE BEYOND PERIMETER MARKED THIS A.M. JANIYA DRAINED OF 30 MLS SEROSANGUINOUS FLUID WITH APPROX 3 SMALL CLOTS NOTED. PT DENIES PAIN MEDICATION AT THIS TIME, WILL NOTIFY RN WHEN READY. CALL LIGHT IN REACH.
--- NOTE | 2019-05-28 18:20 | NUR ---
PT ON 3L O2 VIA NC, SATS HIGH 80'S. PT PAIN WELL MANAGED TODAY, ALTHOUGH PT REPORTS TENDERNESS AT JANIYA DRAIN SITE. DRAIN SITE HAS SOME SHADOWING PRESENT THAT WAS TRACED FOR MONITORING AND JANIYA WAS SAFETY PINNED TO PT GOWN. PT HAD ABAD CATHETER REMOVED AROUND 1030 TODAY AND ONLY PRODUCED APPROX 120 MLS OF TEA COLORED URINE IN 4+ HOURS WITH 64 MLS RESIDUAL ON BLADDER SCANNER, DR. YU NOTIFIED, ORDERS RECEIVED. FLUIDS ENCOURAGED, CONT TO MONITOR OUTPUT. FLUIDS TO D5LR @ 75 MLS/HR ONCE LR BOLUS COMPLETE.
--- NOTE | 2019-05-28 19:48 | NUR ---
RECEIVED REPORT FROM DAY SHIFT RN. PATIENT IS SITTING ON THE EDGED OF THE BED. PATIENT DENIES ANY PAIN OR NAUSEA. NO NEEDS NOTED. CALL LIGHT IN REACH.
--- NOTE | 2019-05-28 21:19 | NUR ---
PATIENT IS SITTING ON THE EDGE OF THE BED. PATIENTS WAS ABLE TO LAY BACK IN BED WITH NO ASSISTANCE SO HIS ABD COULD BE ASSESED. PATIENT ASSESMENT COMPLETED. PATIENTS JANIYA DRESSING FOUND TO BE PARTIALLY SECURED AND DRAINGE NOTED. DRESSING CAHNGED. JANIAY EMPTIED BY NADIYA COYNE. PATIENTS X4 LAP SITES ARE C/D/I, STERI STIPS PRESENT AND OLD DRAINGE NOTED. PATIENT REMAINS IN 3L VIA NC. PATIENT DENIES ANY SOB. RT IN ROOM TO EVAL PATIENT. IS COMPLETED WITH RT. PATIENTS VITALS TAKEN AND RECORDED BY NADIYA COYNE. PATIENT DENIES ANY NAUSEA. PATIENT RATES PAIN AT A 2/10 IN HIS ABD AND DESCRIBES IT "SORE". PATIENT DENIES THE NEED FOR PAIN MEDICATION AT THIS TIME. EDUCATED PATIENT TO CALL SHOULD HE FEEL HE NEEDS MEDICATION. PATIENT VERBALIZED UNDERSTANDING. PATIENTS EVENING MEDICATIONS GIVEN PER ORDER. PATIENT DENIES ANY NEEDS. CALL LIGHT IN REACH. PRESENT IN ROOM.
--- NOTE | 2019-05-28 22:13 | NUR ---
ADMISSION HISTORY REENTERED TODAY. INFORMATION WAS ENTERED UPON ADMISSION BUT WASN'T FOUND TODAY.
--- NOTE | 2019-05-28 23:08 | NUR ---
PATIENT ASSISTED TO THE RESTROOM A SBA. PATIENT WAS ABLE TO VOID. PATIENT IS NOW BACK IN BED RESTING. PATIENT IS SITTING UP ON THE EDGE OF THE BED. PATIENT DENIES ANY PAIN OR NAUSEA. SNACK PROVIDED. NO FURTHER NEEDS NOTED. CALL LIGHT IN REACH.
--- NOTE | 2019-05-29 00:20 | NUR ---
CALL LIGHT ANSWERED. SBA TO THE BATHROOM AND BACK TO BED. SCD BACK ON.
--- NOTE | 2019-05-29 00:36 | NUR ---
PATIENT IS RESTING IN BED WITH EYES CLOSED, CPOX WNL. PATIENTS IS ASLEEP ON THE COUCH. CALL LIGHT IN REACH.
--- NOTE | 2019-05-29 02:47 | NUR ---
PATIENT IS RESTING IN BED WITH HIS EYES CLOSED, CPOX WNL. CALL LIGHT IN REACH.
--- NOTE | 2019-05-29 03:05 | NUR ---
CALL LIGHT ANSWERED. SBA TO BATHROOM BACK TO BED. SCD AND CPOX ARE BACK ON. EMPTIED JANIYA. CALL LIGHT IN REACH. ICE WATER REFILLED.
--- NOTE | 2019-05-29 03:07 | NUR ---
PATIENT ASSISTED TO THE RESTROOM A SBA BY NADIYA COYNE. UPON RETURNING FROM THE RESTROOM PATIENT APPEARED PAINFUL. PATIENT RATES PAIN IN ABD AT A 5/10. PATIENT GIVNE PRN TYLENOL PER ORDER. PATIENT DENIES ANY FURTHER NEEDS. CALL LIGHT IN REACH. REMINS ASLEEP ON THE COUCH.
--- NOTE | 2019-05-29 04:44 | NUR ---
PATIENT RESTED WELL THROUGHOUT THE SHIFT. PATIENT IS ON A REGULAR DIET, TOELRATING WELL, AND NO NAUSEA NOTED. PATIENT IS ON 3L VIA NC AND CPOX. PATIENT IS A SBA.PATIENT IS [place] AND WEARS HEARING AIDS IN BILAT EARS. PATIENT HAS X4 LAP SITES THAT ARE C/D/I. PATIENT HAS JANIYA IN RLQ THAT IS PUTTING OUT A MODERATE AMOUNT OF SANGUIOUNUS FLUID. DRESSING CHANGED AROUND JANIYA. PATIENT RECEIVED X2 PRN TYLENOL FOR ABD PAIN. PATIENT HAS SCDS IN USE WHILE IN BED. PATIENT IS AAOX3 AND USES CALL LIGHT APPROPRIATELY.
--- NOTE | 2019-05-29 05:31 | NUR ---
PATIENTS VITALS TAKEN AND RECORDED BY NADIYA COYNE. PATIENTS INTAKE AND OUPUT RECORDED. JANIYA EMPTIED. PATIENT RATES PAIN AT A 2/10. PATIENT DENIES THE NEED FOR PAIN MEDICATION AT THIS TIME. PATIENT IS RESTING IN BED WITH SCDS IN PLACE. IV INFUSING PER ORDER. NO NEEDS NOTED. CALL LIGHT IN REACH.
--- NOTE | 2019-05-29 07:37 | NUR ---
PT AWAKE AND ALERT ON REPORT FROM FLOYD AMBROSE. CPOX AND O2 REMOVED PER MD ORDERS. PT DENIES ANY COMPLAINTS, STATES JANIYA SITE IS "SORE." PT SPOUSE ON BEDSIDE COUCH RESTING WITH EYES CLOSED.
--- NOTE | 2019-05-29 09:03 | NUR ---
PT EDUCATED ABOUT JANIYA DRAIN FOR HOME CARE. JANIYA DRAIN EMPTIED OF 25 MLS YELLOW FLUID. PT UP TO BATHROOM WITH SBA, STEADY GAIT. ENCOURAGED TO USE CALL LIGHT FOR ANY NEEDS. PT SPOUSE, SOTO AT BEDSIDE.
[2019-05-29] MEDS ORDERED: AUGMENTIN 500-1 EACH PO (09:21)
[2019-05-29] MEDS ORDERED: ACETAMINOPHEN325 M1 PO (09:22)
[2019-05-29] MEDS ORDERED: ADVIL200 M1 PO (09:23)
--- NOTE | 2019-05-29 09:26 | NUR ---
PT PHOSPHATE LAB LOW, DR. YU NOTIFIED. VERBAL ORDERS TO REPLACE WITH SODIUM PHOSPHATE PACKETS PER PHARMACY. PHARMACY NOTIFIED AND ORDERS INPUT.
--- NOTE | 2019-05-29 09:39 | NUR ---
THERE WAS SOME MISCOMMUNICATION ON WHICH DOCTOR THE PATIENT WAS TO FOLLOW UP WITH IN 3-5 DAYS TO HAVE THE DRAIN REMOVED, FLOYD XAVIER CALLED DR YU ABOUT ANTOHER ORDER AND THEN MENTIONED THE APPOINTMENT AND HE SAID THE PATIENT NEEDED TO BE SEEN BY DR TORREZ. I CALLED DR YU TO CLARIFY WITH HIM THAT DR TORREZ WAS ON HIS WAY OUT OF TOWN AND WOULD NOT BE AVAILABLE IN 3-5 DAYS TO REMOVE THE JANIYA DRAIN. HE SAID IF SHAN IS NOT AVAILABLE THEN DR OBRIEN OFFICE WILL NEED TO CALL DR AYALA OFFICE. I CALLED DR OBRIEN OFFICE AND PASSED ALONG THE MESSAGE, HIS OFFICE WILL BE IN CONTACT WITH THE PATIENT.
--- NOTE | 2019-05-29 09:48 | NUR ---
PATIENT RESTING IN BED. IN ROOM. VITAL SIGNS AND I&O DONE. CALL LIGHT WITHIN REACH. NO OTHER NEEDS AT THIS TIME
--- NOTE | 2019-05-29 09:52 | NUR ---
TRICE WITH PHARMACY TALKING TO PT ABOUT HOME MEDICATIONS IN PT ROOM.
== END 2019-05-29 10:30 | disposition home or self-care (01) ==
LOC: ED 15:51 → MS 15:53 → ED 18:45 → MS 18:45
PROVIDERS: ADMIT Surgery
PROC: BF101ZZ Fluoroscopy of Bile Ducts using Low Osmolar Contrast (ICD-10-PCS; 2019-05-27)
PROC: 0FC94ZZ Extirpation of Matter from Common Bile Duct, Percutaneous Endoscopic Approach (ICD-10-PCS; 2019-05-27)
PROC: 0FT44ZZ Resection of Gallbladder, Percutaneous Endoscopic Approach (ICD-10-PCS; principal; 2019-05-27 14:30)
DX: A41.9 Sepsis, unspecified organism (principal); K80.66 Calculus of gallbladder and bile duct with acute and chronic cholecystitis without obstruction; I10 Essential (primary) hypertension; H91.90 Unspecified hearing loss, unspecified ear; M19.90 Unspecified osteoarthritis, unspecified site; G89.29 Other chronic pain; E66.01 Morbid (severe) obesity due to excess calories; Z79.899 Other long term (current) drug therapy; Z88.5 Allergy status to narcotic agent; Z68.35 Body mass index [BMI] 35.0-35.9, adult; Z79.891 Long term (current) use of opiate analgesic
CPT/HCPCS: 00790; 36415; 71045; 74300; 76705; 80053; 82150; 82247; 82465; 83605; 83615; 83735; 84100; 84478; 84484; 84550; 85025; 85379; 93005; 93010; 94760; 94762; 96361; 96372; 96374; 96375; 96376; 99285-25; C1769; C1894; G0378; J0330; J0690; J1100; J1170; J1644; J1720; J1885; J2185; J2250; J2405; J2550; J2704; J2765; J3010; J7030; J7120; J7121; Q9967

== ENCOUNTER 2020-01-18 13:10 | Inpatient (IN) | payer MEDICARE ==
[~2020-01-18] VITALS: Ht 188 cm; Wt 124.5 kg
[~2020-01-18 13:10] MED LIST changes: +ACETAMINOPHEN325 M1 PO; +ADVIL200 M1 PO; +AUGMENTIN 500-1 EACH PO; +VITAMIN B-12500 MCG PO
--- OUTSIDE RECORDS SUMMARY | 2020-01-18 13:12 | XMS ---
PreManage Notification: NIKKY RONDON Security Eyeglass Frames Polisher Events No recent Security Events currently on file CRITERIA MET - History of Sepsis Dx CARE PROVIDERS There are no care providers on record at this time. Emiliano has no Care Guidelines for this patient. [place] VISIT COUNT (12 MO.) 2 JOSH Witt TOTAL 2 NOTE: Visits indicate total known visits. ED/UCC VISIT TRACKING (12 MO.) 01/18/2020 13:10 [facility] [place] TYPE: Emergency COMPLAINT: - WEAKNESS 05/26/2019 15:52 [facility] [place] TYPE: Emergency COMPLAINT: - ACUTE CHOLECYSTITIS INPATIENT VISIT TRACKING (12 MO.) 05/26/2019 15:53 [facility] [place] TYPE: Observation COMPLAINT: - ACUTE CHOLECYSTITIS DIAGNOSES: - Unspecified hearing loss, unspecified ear - Other long-term (current) drug therapy - Unspecified osteoarthritis, unspecified site - Morbid (severe) obesity due to excess calories - Other chronic pain - Allergy status to narcotic agent status - Body mass index (BMI) 35.0-35.9, adult - Calculus of gallbladder and bile duct with acute cholecystiti - Essential (primary) hypertension - termination clerk (current) use of opiate analgesic - Calculus of gallbladder and bile duct with acute and chronic - Pleurodynia - Sepsis, unspecified organism [email or web address]
--- NOTE | 2020-01-18 17:38 | EKG ---
[facility] [address] [facility] [place] [address] Signed Sinus tachycardia with 1st degree AV block with frequent premature ventricular complexes in a pattern of bigeminy Nonspecific ST abnormality Abnormal ECG When compared with ECG of 26-MAY-2019 15:54, Vent. rate has increased BY [address] now depressed in Lateral leads Confirmed by DANIEL KEY DO ([id number]) on 01/18/2020 5:38:02 PM Electronically Signed By: DANIEL KEY DO 01/18/20 1738 PATIENT NAME: NIKKY RONDON Electrocardiogram DATE OF : 39 PHYSICIAN: DANIEL KEY DO REPORT #: [id number] REPORT IS CONFIDENTIAL AND NOT TO BE RELEASED WITHOUT AUTHORIZATION
[2020-01-19] MEDS ORDERED: MAGNESIUM OXID250 MG PO (14:58)
[2020-01-19] MEDS ORDERED: ARTIFICIAL TEAR15 M4 OU (14:59)
[2020-01-21] MEDS ORDERED: KEFLEX500 MG PO (11:33)
== END 2020-01-21 12:50 | disposition home or self-care (01) | DRG 872 ==
LOC: ED 13:10 → CCU 16:15 → MS 01-19 11:15
PROVIDERS: ADMIT Student in an Organized Health Care Education/Training Program
DX: A40.9 Streptococcal sepsis, unspecified (principal); L03.115 Cellulitis of right lower limb; R65.20 Severe sepsis without septic shock; I12.9 Hypertensive chronic kidney disease with stage 1 through stage 4 chronic kidney disease, or unspecified chronic kidney disease; N18.3 Chronic kidney disease, stage 3 (moderate); E78.5 Hyperlipidemia, unspecified; E66.9 Obesity, unspecified; M79.605 Pain in left leg; M79.604 Pain in right leg; N28.9 Disorder of kidney and ureter, unspecified; D63.1 Anemia in chronic kidney disease; L97.519 Non-pressure chronic ulcer of other part of right foot with unspecified severity; D50.9 Iron deficiency anemia, unspecified; K57.90 Diverticulosis of intestine, part unspecified, without perforation or abscess without bleeding; Z88.5 Allergy status to narcotic agent; Z79.899 Other long term (current) drug therapy; Z79.1 Long term (current) use of non-steroidal anti-inflammatories (NSAID)
CPT/HCPCS: 36415; 71045; 80048; 80053; 81001; 82728; 83036; 83540; 83605; 83735; 84466; 84484; 84550; 85025; 87040; 87077; 87186; 87502; 93005; 93010; 96361; 96365; 96375; 96376; 97161; 99285-25; J0690; J0692; J1170; J1650; J1885; J3010; J3370; J7030; J7060; J7121

== ENCOUNTER 2022-12-27 10:54 | Emergency (ER) | payer MEDICARE ==
[~2022-12-27] VITALS: Ht 188 cm; Wt 124.7 kg
[~2022-12-27 10:54] MED LIST changes: +ARTIFICIAL TEAR15 M4 OU; +KEFLEX500 MG PO; +MAGNESIUM OXID250 MG PO
== END 2022-12-27 16:20 | disposition home or self-care (01) ==
LOC: ED 10:54
DX: F41.9 Anxiety disorder, unspecified (principal); F43.0 Acute stress reaction; I10 Essential (primary) hypertension; M19.90 Unspecified osteoarthritis, unspecified site; Z88.5 Allergy status to narcotic agent; Z79.899 Other long term (current) drug therapy
CPT/HCPCS: 99283

== ENCOUNTER 2024-06-15 04:28 | Inpatient (IN) | payer MEDICARE ==
[~2024-06-15] VITALS: Ht 188 cm; Wt 113.6 kg
[2024-06-15] MEDS ORDERED: ondansetron HCL 4 MG/2 ML VIAL IV ONE (04:45)
[2024-06-15] MEDS ORDERED: HYDROmorphone HCL 1 MG/ML SYR IV PRN ×2 (04:45→07:45)
[2024-06-15] MEDS ORDERED: SODIUM CHLORIDE 0.9% 1,000 ML IV ONE (04:45)
[2024-06-15] MEDS ORDERED: KETOROLAC TROMETHAMINE 30 MG/ML VIAL IV ONE (05:00)
[2024-06-15 05:09] LABS: HEMOGLOBIN 15.9 g/dL (12.0-18.0)
[2024-06-15 05:11] LABS: BASOPHILS 0.6 % (0-2); EOSINOPHILS 1.7 % (0-6); HEMATOCRIT 46.3 % (35.0-50.0); LYMPHOCYTES 15.2 % (24-44); MCH 30.2 (27-36); MCHC 34.2 g/dl (30-36); MCV 88.1 fl (81-99); MONOCYTES 10.8 % (0-12); NEUTROPHILS 71.7 % (39-80); PLATELET COUNT 211 K/uL (140-440); RBC 5.26 M/ul (4.3-5.7); RDW 14.5 (10.5-15.0)
[2024-06-15 05:23] LABS: ALBUMIN 3.8 g/dL (3.4-5.0); ALBUMIN/GLOBULIN RATIO 0.88 (1.1-2.4); ANION GAP 12.8 (7-21); BILIRUBIN, TOTAL 1.7 ng/dL (0.2-1.0); BUN/CREATININE RATIO 22.62 (6.0-28.6); CALCIUM 9.1 mg/dL (8.5-10.1); CREATININE, SERUM 1.37 mg/dL (0.70-1.30); POTASSIUM 3.8 mmol/L (3.5-5.1); PROTEIN, TOTAL 8.1 g/dL (6.4-8.2)
[2024-06-15] MEDS ORDERED: ondansetron HCL 4 MG/2 ML VIAL IV PRN ×2 (07:45→10:15)
[2024-06-15] MEDS ORDERED: LACTATED RINGER'S 1,000 ML IV SCH ×2 (07:45→10:15)
[2024-06-15 09:04] VITALS: BP 137/79
[2024-06-15] MEDS ORDERED: HEParin SOD (PORCINE) 5,000 UNIT/ML SDV SUB-Q SCH (10:22)
[2024-06-15] MEDS ORDERED: PHARMACY RENAL DOSE ADJUSTMENT 1 DOSE MISC PO SCH (12:00)
[2024-06-15 13:42] VITALS: BP 124/71
[2024-06-15] MEDS ORDERED: MENTHOL/CETYLPYRD CL 1 LOZ LOZENGE PO PRN (14:00)
[2024-06-15 17:20] VITALS: BP 147/81
[2024-06-15 21:46] VITALS: BP 129/74
[2024-06-15 22:10] VITALS: BP 129/74
[2024-06-16] VITALS (7 sets, daily range): BP systolic 120–128; BP diastolic 71–76
[2024-06-16 05:21] LABS: BASOPHILS 0.8 % (0-2); EOSINOPHILS 3.6 % (0-6); HEMATOCRIT 42.3 % (35.0-50.0); HEMOGLOBIN 14.3 g/dL (12.0-18.0); LYMPHOCYTES 21.7 % (24-44); MCH 30.4 (27-36); MCHC 33.9 g/dl (30-36); MCV 89.8 fl (81-99); MONOCYTES 13.6 % (0-12); NEUTROPHILS 60.3 % (39-80); PLATELET COUNT 184 K/uL (140-440); RBC 4.71 M/ul (4.3-5.7); RDW 14.2 (10.5-15.0)
[2024-06-16 05:37] LABS: ALBUMIN 3.2 g/dL (3.4-5.0); ALBUMIN/GLOBULIN RATIO 0.8 (1.1-2.4); ANION GAP 7.8 (7-21); BILIRUBIN, TOTAL 1.7 ng/dL (0.2-1.0); BUN/CREATININE RATIO 23.62 (6.0-28.6); CREATININE, SERUM 1.27 mg/dL (0.70-1.30); MAGNESIUM 2.1 mg/dL (1.8-2.4); POTASSIUM 3.8 mmol/L (3.5-5.1); PROTEIN, TOTAL 7.2 g/dL (6.4-8.2)
--- NOTE | 2024-06-16 07:13 | CONS ---
[facility] [address], [place] [address] Signed DATE OF CONSULTATION: HISTORY OF PRESENT ILLNESS: The patient is a very pleasant 89-year-old male, who has had a history of multiple abdominal surgeries including a remote appendectomy at age 7, a cholecystectomy approximately 10 years ago, a right hemicolectomy with ileocolic anastomosis in 1996. He is admitted through the ER with one day history of abdominal discomfort centrally located band like supraumbilical, nausea and abdominal bloating. His last bowel movement was 1:30 p.m. on the 13 of this month. He says it was loose brown without blood. He has been belching. Nasogastric tube was placed in the emergency room with about an L out of bilious gastric contents without blood. He received small dose of Toradol and some Zofran. CT scan was performed which showed a large volume of fluid in the stomach, mild small bowel distention. There was gas in the rectal vault, but decompressed descending colon. The radiologist report notes a transition point in the central anterior abdomen with distal decompression. Note was made of an ileocolic anastomosis in the left upper quadrant. There was scattered diverticula in the sigmoid colon and note was made of small amount of fatty liver. PAST MEDICAL HISTORY: Consists of obesity, hypertension, hyperlipidemia. PAST SURGICAL HISTORY: As listed above. He takes several blood pressure medications. ALLERGIES: He is allergic to morphine. PHYSICAL EXAMINATION: VITAL SIGNS: Shows heart rate normal sinus rhythm at 80, respiratory rate 18, blood pressure 123/79, he sats about 92% to 94% on room air. His temperature was noted to be 36.7. HEENT: No scleral icterus is appreciated. His EOMs are intact. HEART: Faint heart sounds. CHEST: Lung larios are clear to ausculation bilaterally. ABDOMEN: Soft, obese. There tympany to percussion in his epigastrium. There was minimal tenderness to deep palpation supra-umbilically. No hernias are appreciated at his midline celiotomy incision. Point of maximal tenderness which is mild to deep pressure is superior to his umbilicus, which correlates to the area of concern on CAT scan. EXTREMITIES: Warm, perfused. Good capillary refill. There is mild skin tenting. There is no other evidence of clubbing, cyanosis or edema. LABORATORY STUDIES: Significant for white blood cell count of 11.8, hemoglobin 15.9, platelets 211. His Electronically Signed By: JHONNY FLETCHER MD 06/16/24 0713 PATIENT NAME: NIKKY RONDON CONSULTATION DATE OF : 39 REPORT #: [id number] PHYSICIAN: JHONNY FLETCHER MD PCP: DILLAN CA DO REPORT IS CONFIDENTIAL AND NOT TO BE RELEASED WITHOUT AUTHORIZATION [facility] [address] [place], [place] [address] Signed chemistry panel, potassium was noted to be 3.8, bicarb 27, BUN and creatinine 31 and 1.37 respectively. LFTs are within normal limits. His total bilirubin however is 1.7 which is mildly elevated. ASSESSMENT AND PLAN: Small bowel obstruction. He is not an extremis. There was no pain out of proportion to exam. He is sitting comfortably in bed. Nasogastric tube is in place. IV fluid resuscitation has been initiated. He has been admitted to the medical hospitalist. I would recommend enoxaparin, DVT prophylaxis, incentive spirometry, deep breathing. We will consider a gastrografin contrast study after a period of resuscitation, consider that tomorrow. Counseling has been performed with the patient. Long discussion counseling including deep breathing exercises, ambulation with assistance, dietary recommendations for future. We will treat this nonoperatively. If the patient develops worsening abdominal pain we will reevaluate that decision. The patient is fine with the plan. Questions been answered to his satisfaction. My findings and exam have been relayed to the medical team. Jhonny Fletcher MD BD/MODL /[id number] Copies: ~ Electronically Signed By: JHONNY FLETCHER MD 06/16/24 0713 PATIENT NAME: NIKKY RONDON CONSULTATION DATE OF : 39 REPORT #: [id number] PHYSICIAN: JHONNY FLETCHER MD PCP: DILLAN CA DO REPORT IS CONFIDENTIAL AND NOT TO BE RELEASED WITHOUT AUTHORIZATION
--- NOTE | 2024-06-17 09:02 | PR ---
[facility] [address] [place], [place] [address] Signed DATE OF STUDY: SUBJECTIVE: The patient is doing well. He denies pain, nausea, vomiting, fevers, chills, shortness of breath or chest pain. He is ready to get the nasogastric tube out. He is passing gas and having flatus and having loose bowel movements without blood. PHYSICAL EXAMINATION: VITAL SIGNS: The patient's vital signs are stable. He is afebrile. Heart rate is 70s to 80s sinus rhythm, respirations 19 with current blood pressure of 125/76. HEENT: His sclerae without icterus. His EOMs are intact. CHEST: Clear to auscultation bilaterally. HEART: Regular rate and rhythm. Multiple faint heart sounds. ABDOMEN: Soft, obese, nontender, nondistended. On deep palpation supraumbilically, he has very subtle minor discomfort. There is no tympany to percussion. No hernias appreciated. EXTREMITIES: Warm and perfused without clubbing, cyanosis or edema. LABORATORY STUDIES: Show a normal white count at 8.4, hemoglobin 14.2, and platelet 184. His chemistry panel today is within normal limits, BUN and creatinine have tapered down to 30 and 1.27 respectively. ASSESSMENT AND PLAN: Partial small bowel obstruction presumed to be secondary to adhesions from prior surgery. Area of concern was central mid anterior abdomen with a small amount of transition point of ominous CT findings. The patient seems to have recovered well with nonoperative management and nasogastric tube decompression. Counseling ensued with the patient as far as dietary recommendations, avoidance of hard to digest fibrous vegetables namely kale, broccoli, orange juice, and corn. Questions have been answered to his satisfaction. Nasogastric tube was removed this morning by myself. He will be trialed on a clear liquid diet and from the surgical standpoint if he tolerates diet, he can go home. He has been counseled to return if nausea, vomiting, abdominal distention, obstipation, he stops passing flatus or has bowel movements or if pain recurs at the site of concern. He is understanding of this and questions have been answered to his satisfaction. Elizabeth Fletcher MD *Electronically Signed* 06/17/249[address] ELIZABETH FLETCHER MD PATIENT NAME: NIKKY RONDON PROGRESS NOTE DATE OF : 39 PHYSICIAN: ELIZABETH FLETCHER MD RPT #: [id number] REPORT IS CONFIDENTIAL AND NOT TO BE RELEASED WITHOUT AUTHORIZATION [facility] [address] [facility] [place] [address] Signed BD/MODL /[id number] Copies: ~ *Electronically Signed* 06/17/249[address] ELIZABETH FLETCHER MD PATIENT NAME: NIKKY RONDON PROGRESS NOTE DATE OF : 39 PHYSICIAN: ELIZABETH FLETCHER MD RPT #: [id number] REPORT IS CONFIDENTIAL AND NOT TO BE RELEASED WITHOUT AUTHORIZATION
== END 2024-06-16 11:30 | disposition home or self-care (01) | DRG 390 ==
LOC: ED 04:28 → MS 07:42
PROVIDERS: Family Medicine; ADMIT Family Medicine; ATTEND Family Medicine
PROC: 0D9670Z Drainage of Stomach with Drainage Device, Via Natural or Artificial Opening (ICD-10-PCS; principal; 2024-06-15)
DX: K56.51 Intestinal adhesions [bands], with partial obstruction (principal); I12.9 Hypertensive chronic kidney disease with stage 1 through stage 4 chronic kidney disease, or unspecified chronic kidney disease; N18.30 Chronic kidney disease, stage 3 unspecified; D50.9 Iron deficiency anemia, unspecified; D63.1 Anemia in chronic kidney disease; E80.6 Other disorders of bilirubin metabolism; K57.30 Diverticulosis of large intestine without perforation or abscess without bleeding; Z66 Do not resuscitate; K76.0 Fatty (change of) liver, not elsewhere classified; E66.9 Obesity, unspecified; H91.90 Unspecified hearing loss, unspecified ear; E78.00 Pure hypercholesterolemia, unspecified; M19.90 Unspecified osteoarthritis, unspecified site; H26.9 Unspecified cataract; Z79.811 Long term (current) use of aromatase inhibitors; Z88.5 Allergy status to narcotic agent; Z90.49 Acquired absence of other specified parts of digestive tract; Z98.890 Other specified postprocedural states; Z79.899 Other long term (current) drug therapy
CPT/HCPCS: 36415; 74177; 80053; 83605; 83690; 83735; 84100; 85025; 96361; 96375; 99285-25; J1644; J1885; J2405; J7030; J7121; Q9967

== ENCOUNTER 2024-07-24 12:36 | Emergency (ER) | payer MEDICARE ==
[~2024-07-24] VITALS: Ht 188 cm; Wt 116.2 kg
[2024-07-24 13:00] LABS: BASOPHILS 0.9 % (0-2); EOSINOPHILS 4.7 % (0-6); HEMATOCRIT 46.3 % (35.0-50.0); HEMOGLOBIN 15.8 g/dL (12.0-18.0); LYMPHOCYTES 28.1 % (24-44); MCH 30.3 (27-36); MCHC 34.1 g/dl (30-36); MONOCYTES 12.5 % (0-12); NEUTROPHILS 53.8 % (39-80); PLATELET COUNT 206 K/uL (140-440); RDW 14.6 (10.5-15.0)
[2024-07-24] MEDS ORDERED: ASPIRIN 81 MG CHEW PO ONE (13:00)
[2024-07-24 13:23] LABS: ALBUMIN 3.8 g/dL (3.4-5.0); ALBUMIN/GLOBULIN RATIO 0.86 (1.1-2.4); ANION GAP 11.5 (7-21); BILIRUBIN, TOTAL 1.1 ng/dL (0.2-1.0); BUN/CREATININE RATIO 20.16 (6.0-28.6); CALCIUM 9.6 mg/dL (8.5-10.1); CREATININE, SERUM 1.24 mg/dL (0.70-1.30); POTASSIUM 4.5 mmol/L (3.5-5.1); PROTEIN, TOTAL 8.2 g/dL (6.4-8.2)
[2024-07-24 15:10] VITALS: BP 114/73
--- NOTE | 2024-07-25 15:27 | EKG ---
[facility] [address] [facility] [place], [place] [address] Signed Sinus rhythm with 1st degree AV block Left axis deviation Abnormal ECG No previous ECGs available Confirmed by Gamal Davis MD ([id number]) on 07/25/2024 3:27:55 PM Electronically Signed By: GAMAL DAVIS MD 07/25/24 1527 PATIENT NAME: NIKKY RONDON Electrocardiogram DATE OF : 39 PHYSICIAN: GAMAL DAVIS MD REPORT #: [id number] REPORT IS CONFIDENTIAL AND NOT TO BE RELEASED WITHOUT AUTHORIZATION
--- NOTE | 2024-07-25 15:28 | EKG ---
[facility] [address] [facility] [place], [place] [address] Signed Sinus rhythm with 1st degree AV block with premature atrial complexes Left axis deviation Abnormal ECG No previous ECGs available Confirmed by Jose M Davis MD ([id number]) on 07/25/2024 3:28:13 PM Electronically Signed By: JOSE M DAVIS MD 07/25/24 1528 PATIENT NAME: NIKKY RONDON KIAN Electrocardiogram DATE OF : 39 PHYSICIAN: JOSE M DAVIS MD REPORT #: [id number] REPORT IS CONFIDENTIAL AND NOT TO BE RELEASED WITHOUT AUTHORIZATION
== END 2024-07-24 15:10 | disposition home or self-care (01) ==
LOC: ED 12:36
PROVIDERS: Emergency Medicine
DX: R07.89 Other chest pain (principal); I10 Essential (primary) hypertension; Z90.49 Acquired absence of other specified parts of digestive tract; Z88.5 Allergy status to narcotic agent; Z79.899 Other long term (current) drug therapy
CPT/HCPCS: 36415; 71045; 80053; 83735; 83880; 84484; 85025; 93005; 93010; 99285-25; A9270